=== PATIENT | female | born 1965 | race Caucasian/White ===

== ENCOUNTER 2018-02-07 18:37 | Emergency (ER) | payer OTHER ==
[~2018-02-07] VITALS: Ht 162.6 cm; Wt 126.4 kg
[~2018-02-07 18:37] MED LIST: FURO-92 PO; LISI-167 PO; Nicotine TD; ONDA4TAB7 PO; POLY17PO5 PO; POTA10TA11 PO; SPIR50TA PO; TRAM50TA2 PO
[2018-02-07 19:23] LABS: BASOPHILS % (AUTO) 0 % (0-1); EOSINOPHILS # (AUTO) 0.16 x10^3/uL (0-0.4); EOSINOPHILS % (AUTO) 2 % (1-7); LYMPHOCYTES # (AUTO) 0.98 x10^3/uL (1-3.4); LYMPHOCYTES % (AUTO) 12 % (22-44); MD NO; MEAN CORPUSCULAR HGB CONC 32.7 g/dL (32.4-35.8); MEAN CORPUSCULAR VOLUME 76.6 fL (80-100); MEAN PLATELET VOLUME 8.3 fL (7.4-10.4); MONOCYTES # (AUTO) 0.45 x10^3/uL (0.2-0.8); MONOCYTES % (AUTO) 5 % (2-9); NEUTROPHILS # (AUTO) 6.93 x10^3/uL (1.8-6.8); NEUTROPHILS % (AUTO) 81 % (42-75); PLATELET COUNT 179 x10^3/uL (130-400); RED BLOOD COUNT 6.36 x10^6/uL (3.82-5.3); RED CELL DISTRIBUTION WIDTH 17.2 % (9.6-15.2)
[2018-02-07 19:32] LABS: INTERNATIONAL NORMALIZED RATIO 1.02 (0.93-1.1); PROTHROMBIN TIME 10.6 Seconds (9.6-11.5)
[2018-02-07 19:34] LABS: ALANINE AMINOTRANSFERASE 31 U/L (12-78); ALBUMIN 3.5 g/dL (3.4-5.0); ANION GAP 6 mmol/L (5-15); CALCIUM 8.6 mg/dL (8.5-10.1); CHLORIDE 105 mmol/L (98-107); CREATININE 0.62 mg/dL (0.55-1.02)
[2018-02-07 19:38] LABS: ALKALINE PHOSPHATASE 90 U/L (45-117); BILIRUBIN,TOTAL 0.6 mg/dL (0.2-1.0); TOTAL PROTEIN 8.4 g/dL (6.4-8.2); TROPONIN I < 0.015 ng/mL (0.000-0.045)
[2018-02-07] MEDS ORDERED: IBUPROFEN 200 MG TABLET ONE (20:28)
[2018-02-07] MEDS ORDERED: IBUPROFEN 200 MG TABLET PO ONE (20:30)
[2018-02-07 20:38] VITALS: BP 147/74
== END 2018-02-07 20:48 | disposition home or self-care (01) ==
LOC: ED 19:06
DX: I27.0 Primary pulmonary hypertension (principal); J01.10 Acute frontal sinusitis, unspecified; I50.9 Heart failure, unspecified; Z90.89 Acquired absence of other organs; Z98.51 Tubal ligation status; F17.210 Nicotine dependence, cigarettes, uncomplicated
CPT/HCPCS: 36415; 71045; 80053; 83880; 84484; 85025; 85610; 85730; 93005; 99285

== ENCOUNTER 2018-02-12 18:36 | Inpatient (IN) | payer OTHER ==
[~2018-02-12] VITALS: Ht 162.6 cm; Wt 126.2 kg
[2018-02-12 19:14] LABS: BASOPHILS # (AUTO) 0.04 x10^3/uL (0-0.1); BASOPHILS % (AUTO) 0 % (0-1); EOSINOPHILS # (AUTO) 0.14 x10^3/uL (0-0.4); EOSINOPHILS % (AUTO) 1 % (1-7); LYMPHOCYTES # (AUTO) 1.48 x10^3/uL (1-3.4); LYMPHOCYTES % (AUTO) 15 % (22-44); MD NO; MEAN CORPUSCULAR HEMOGLOBIN 25.2 pg (27.0-34.8); MEAN CORPUSCULAR HGB CONC 32.8 g/dL (32.4-35.8); MEAN CORPUSCULAR VOLUME 76.6 fL (80-100); MEAN PLATELET VOLUME 8.5 fL (7.4-10.4); MONOCYTES # (AUTO) 0.57 x10^3/uL (0.2-0.8); MONOCYTES % (AUTO) 6 % (2-9); NEUTROPHILS # (AUTO) 7.98 x10^3/uL (1.8-6.8); NEUTROPHILS % (AUTO) 78 % (42-75); PLATELET COUNT 184 x10^3/uL (130-400); RED CELL DISTRIBUTION WIDTH 17.1 % (9.6-15.2)
[2018-02-12 19:19] LABS: INTERNATIONAL NORMALIZED RATIO 1.05 (0.93-1.1); PROTHROMBIN TIME 10.8 Seconds (9.6-11.5)
[2018-02-12 19:20] LABS: ALANINE AMINOTRANSFERASE 30 U/L (12-78); ALBUMIN 3.7 g/dL (3.4-5.0); ANION GAP 5 mmol/L (5-15); CHLORIDE 99 mmol/L (98-107); CREATININE 0.71 mg/dL (0.55-1.02)
[2018-02-12 19:24] LABS: ALKALINE PHOSPHATASE 86 U/L (45-117); BILIRUBIN,TOTAL 0.8 mg/dL (0.2-1.0); TOTAL PROTEIN 8.9 g/dL (6.4-8.2); TROPONIN I < 0.015 ng/mL (0.000-0.045)
[2018-02-12] MEDS ORDERED: OMNIPAQUE 350 MG/ML, 100ML BOTTLE ONE (21:20)
[2018-02-12] MEDS ORDERED: SENN1TAB8 PO (21:45)
[2018-02-12] MEDS ORDERED: ESOM40CA PO (21:46)
[2018-02-12] MEDS ORDERED: LINA5TAB PO (21:46)
[2018-02-12] MEDS ORDERED: ASPI-496 PO (21:47)
[2018-02-12] MEDS ORDERED: CEPH-368 PO (21:47)
[2018-02-12] MEDS: SODIUM CHLORIDE FLUSH 10ML SYR IVF SCH (22:30)
[2018-02-12] MEDS ORDERED: NITROGLYCERIN 0.4 MG BOTTLE (25 TABS) SL PRN (22:30)
[2018-02-12] MEDS ORDERED: morphine SULFATE 10 MG/ML, 1ML IVPush PRN (22:30)
[2018-02-12] MEDS: CEPHALEXIN 500 MG CAPSULE PO SCH (22:30)
[2018-02-12] MEDS ORDERED: ONDANSETRON ODT 4 MG PO PRN (22:30)
[2018-02-12] MEDS ORDERED: POLYETHYLENE GLYCOL 17 GM PACKET PO PRN (22:30)
[2018-02-12] MEDS ORDERED: BISACODYL 10 MG SUPP PR PRN (22:30)
[2018-02-12 22:33] VITALS: BP 120/77
[2018-02-12] MEDS: HEPARIN 5,000 UNITS/ML, 1ML SQ SCH (23:50)
[2018-02-13] MEDS: ALBUTEROL SULFATE 2.5 MG/3 ML NPPB PRN ×2 (00:42→17:23)
[2018-02-13 00:55] LABS: TROPONIN I < 0.015 ng/mL (0.000-0.045)
[2018-02-13 02:00] VITALS: BP 102/58
[2018-02-13] MEDS: ASPIRIN 81 MG TABLET EC PO SCH (05:23)
[2018-02-13 07:22] LABS: BASOPHILS # (AUTO) 0.04 x10^3/uL (0-0.1); BASOPHILS % (AUTO) 1 % (0-1); EOSINOPHILS # (AUTO) 0.16 x10^3/uL (0-0.4); EOSINOPHILS % (AUTO) 2 % (1-7); LYMPHOCYTES # (AUTO) 1.61 x10^3/uL (1-3.4); LYMPHOCYTES % (AUTO) 21 % (22-44); MD NO; MEAN CORPUSCULAR HEMOGLOBIN 24.9 pg (27.0-34.8); MEAN CORPUSCULAR HGB CONC 32.8 g/dL (32.4-35.8); MEAN PLATELET VOLUME 8.6 fL (7.4-10.4); MONOCYTES # (AUTO) 0.54 x10^3/uL (0.2-0.8); MONOCYTES % (AUTO) 7 % (2-9); NEUTROPHILS # (AUTO) 5.29 x10^3/uL (1.8-6.8); NEUTROPHILS % (AUTO) 69 % (42-75); PLATELET COUNT 161 x10^3/uL (130-400); RED BLOOD COUNT 6.08 x10^6/uL (3.82-5.3); RED CELL DISTRIBUTION WIDTH 17.1 % (9.6-15.2)
[2018-02-13 07:23] LABS: ALANINE AMINOTRANSFERASE 27 U/L (12-78); ALBUMIN 3.3 g/dL (3.4-5.0); ANION GAP 8 mmol/L (5-15); CALCIUM 8.8 mg/dL (8.5-10.1); CHLORIDE 100 mmol/L (98-107); CHOLESTEROL, TOTAL 169 mg/dL (140-239); CREATININE 0.53 mg/dL (0.55-1.02)
[2018-02-13 07:25] VITALS: BP 93/59
[2018-02-13 07:28] LABS: ALKALINE PHOSPHATASE 80 U/L (45-117); BILIRUBIN,TOTAL 1.1 mg/dL (0.2-1.0); CHOL/HDL RATIO 3.8; HDL CHOL % 27 % (28-40); HDL CHOLESTEROL (DIRECT) 45 mg/dL (40-60); LDL CHOLESTEROL,CALCULATED 103 mg/dL (54-169); LDL/HDL RATIO 2.3 (0.5-3.0); TOTAL PROTEIN 7.9 g/dL (6.4-8.2); TRIGLYCERIDES 104 mg/dL (50-200); TROPONIN I < 0.015 ng/mL (0.000-0.045); VLDL CHOLESTEROL 21 mg/dL (0-25)
[2018-02-13] MEDS: LINAGLIPTIN 5 MG TAB PO SCH (07:50)
[2018-02-13] MEDS: PANTOPROZOLE 40MG TABLET PO SCH (07:50)
[2018-02-13] MEDS: SENNA/DOCUSATE TABLET PO SCH (07:50)
[2018-02-13] MEDS: LISINOPRIL 10 MG TABLET PO SCH (07:50)
[2018-02-13] MEDS: HEPARIN 5,000 UNITS/ML, 1ML SQ SCH ×3 (07:51→23:15)
[2018-02-13] MEDS ORDERED: REGADENOSON 0.4 MG/5 ML SYRINGE ONE (08:33)
[2018-02-13] MEDS: CEPHALEXIN 500 MG CAPSULE PO SCH ×3 (09:00→21:00)
[2018-02-13] MEDS: SODIUM CHLORIDE FLUSH 10ML SYR IVF SCH ×2 (09:00→23:15)
[2018-02-13 10:30] VITALS: BP 116/77
[2018-02-13] MEDS: FERROUS SULFATE 325 MG TABLET PO SCH (10:47)
[2018-02-13 13:28] VITALS: BP 124/83
[2018-02-13] MEDS ORDERED: IBUPROFEN 200 MG TABLET PO PRN (17:00)
[2018-02-13] MEDS ORDERED: IBUPROFEN 200 MG TABLET ONE (17:00)
[2018-02-13 18:56] VITALS: BP 110/67
[2018-02-14 01:57] VITALS: BP 93/60
[2018-02-14] MEDS: ASPIRIN 81 MG TABLET EC PO SCH (06:03)
[2018-02-14 07:40] VITALS: BP 135/83
[2018-02-14] MEDS: SENNA/DOCUSATE TABLET PO SCH (08:29)
[2018-02-14] MEDS: PANTOPROZOLE 40MG TABLET PO SCH (08:29)
[2018-02-14] MEDS: FERROUS SULFATE 325 MG TABLET PO SCH (08:30)
[2018-02-14] MEDS: LISINOPRIL 10 MG TABLET PO SCH (08:30)
[2018-02-14] MEDS: LINAGLIPTIN 5 MG TAB PO SCH (08:30)
[2018-02-14] MEDS: HEPARIN 5,000 UNITS/ML, 1ML SQ SCH (08:30)
[2018-02-14] MEDS: CEPHALEXIN 500 MG CAPSULE PO SCH (08:33)
[2018-02-14] MEDS: SODIUM CHLORIDE FLUSH 10ML SYR IVF SCH (09:00)
[2018-02-14] MEDS ORDERED: SIMV40TA PO (10:51)
[2018-02-14 12:44] VITALS: BP 117/80
== END 2018-02-14 17:08 | disposition home or self-care (01) | DRG 313 ==
LOC: ED 20:05 → EDIP 21:48 → 5SO 22:26
PROVIDERS: ADMIT Internal Medicine; ATTEND Internal Medicine
DX: R07.9 Chest pain, unspecified (principal); E46 Unspecified protein-calorie malnutrition; E87.1 Hypo-osmolality and hyponatremia; I50.30 Unspecified diastolic (congestive) heart failure; J96.10 Chronic respiratory failure, unspecified whether with hypoxia or hypercapnia; I38 Endocarditis, valve unspecified; Z68.42 Body mass index [BMI] 45.0-49.9, adult; E66.01 Morbid (severe) obesity due to excess calories; B19.20 Unspecified viral hepatitis C without hepatic coma; D64.9 Anemia, unspecified; F17.210 Nicotine dependence, cigarettes, uncomplicated; I07.1 Rheumatic tricuspid insufficiency; I11.0 Hypertensive heart disease with heart failure; I27.20 Pulmonary hypertension, unspecified; Z99.81 Dependence on supplemental oxygen; Z90.49 Acquired absence of other specified parts of digestive tract; Z98.51 Tubal ligation status; Z82.49 Family history of ischemic heart disease and other diseases of the circulatory system; Z79.82 Long term (current) use of aspirin; Z79.899 Other long term (current) drug therapy; Z88.5 Allergy status to narcotic agent; Z88.1 Allergy status to other antibiotic agents
CPT/HCPCS: 36415; 99285; J7613; 71045; 71275; 78452; 80053; 80061; 82728; 83540; 83550; 83880; 84484; 85025; 85610; 85730; 93005; 93017; 93306; 94640; G0378; J1644; J2785; Q0162; Q9967; A9502; C9898

== ENCOUNTER → 2018-02-19 | Outpatient (CLI) | payer OTHER ==
[~2018-02-19] MED LIST changes: +ASPI-496 PO; +CEPH-368 PO; +ESOM40CA PO; +LINA5TAB PO; +SENN1TAB8 PO; +SIMV40TA PO
== END | disposition home or self-care (01) ==
LOC: CARD 14:19
PROVIDERS: ATTEND Internal Medicine Cardiovascular Disease
DX: R06.02 Shortness of breath (principal)
CPT/HCPCS: 94060; 94726; 94729

== ENCOUNTER → 2018-10-23 | Outpatient (CLI) | payer BC ==
[~2018-10-23] MED LIST changes: +ALBU90AE INH; +FLUT9.9S NS; +GLIP2.5T16 PO; +LORA10TA75 PO; +NAPR220C2 PO; +NICO-487 TD; +SENN-177 PO; -SENN1TAB8 PO; +SODI1TAB11 PO; +UMEC1DIS INH
[2018-10-23 11:22] LABS: ALANINE AMINOTRANSFERASE 39 U/L (12-78); ANION GAP 4 mmol/L (5-15); CALCIUM 9.6 mg/dL (8.5-10.1); CHLORIDE 102 mmol/L (98-107); CREATININE 0.75 mg/dL (0.55-1.02)
[2018-10-23 11:25] LABS: ALKALINE PHOSPHATASE 105 U/L (45-117); BILIRUBIN,TOTAL 0.5 mg/dL (0.2-1.0); TOTAL PROTEIN 8.7 g/dL (6.4-8.2)
== END | disposition home or self-care (01) ==
LOC: STAR 09:51
PROVIDERS: ATTEND Internal Medicine Gastroenterology
DX: Z01.818 Encounter for other preprocedural examination (principal); G47.30 Sleep apnea, unspecified; B18.2 Chronic viral hepatitis C; R19.5 Other fecal abnormalities
CPT/HCPCS: 36415; 80053; 93005

== ENCOUNTER → 2019-03-15 | Outpatient (CLI) | payer BC | END | disposition home or self-care (01) | LOC: CFH 14:13 | PROVIDERS: ATTEND Registered Nurse | DX: Z12.2 Encounter for screening for malignant neoplasm of respiratory organs (principal); I28.1 Aneurysm of pulmonary artery; F17.210 Nicotine dependence, cigarettes, uncomplicated; J44.9 Chronic obstructive pulmonary disease, unspecified; G47.33 Obstructive sleep apnea (adult) (pediatric); I11.0 Hypertensive heart disease with heart failure; E11.9 Type 2 diabetes mellitus without complications; J96.11 Chronic respiratory failure with hypoxia; I50.9 Heart failure, unspecified; E66.01 Morbid (severe) obesity due to excess calories; D64.9 Anemia, unspecified; F32.9 Major depressive disorder, single episode, unspecified | CPT/HCPCS: G0297 ==

== ENCOUNTER → 2019-05-06 | Outpatient (CLI) | payer BC | END | disposition home or self-care (01) | LOC: CFH 12:43 | PROVIDERS: ATTEND Internal Medicine | DX: Z12.31 Encounter for screening mammogram for malignant neoplasm of breast (principal) | CPT/HCPCS: 77067 ==

== ENCOUNTER 2019-08-19 22:59 | Emergency (ER) | payer OTHER ==
[~2019-08-19] VITALS: Ht 162.6 cm; Wt 126.1 kg
--- NOTE | 2019-08-19 23:25 | NUR ---
PA AT BEDSIDE TO ASSESS PT
[2019-08-19] MEDS ORDERED: ONDANSETRON 2MG/ML, 2ML IVPush ONE (23:30)
[2019-08-19] MEDS ORDERED: MORPHINE SULFATE 4 MG/ML, 1ML IVPush ONE (23:30)
--- NOTE | 2019-08-19 23:30 | NUR ---
THIS IS A 54Y F THAT COMES IN FOR ABD/ BACK PAIN WORSENING OVER PAST FEW DAYS. PT STS LAST BM WAS A FEW DAYS AGO. PT HAS HX OF GERD. PT CONNECTED TO MONITORING, TORY ALANIZ.
[2019-08-19 23:55] LABS: BASOPHILS # (AUTO) 0.03 x10^3/uL (0-0.1); BASOPHILS % (AUTO) 0 % (0-1); EOSINOPHILS # (AUTO) 0.13 x10^3/uL (0-0.4); EOSINOPHILS % (AUTO) 2 % (1-7); LYMPHOCYTES # (AUTO) 1.37 x10^3/uL (1-3.4); LYMPHOCYTES % (AUTO) 16 % (22-44); MD NO; MEAN CORPUSCULAR HEMOGLOBIN 26.6 pg (27.0-34.8); MEAN CORPUSCULAR HGB CONC 33.1 g/dL (32.4-35.8); MEAN CORPUSCULAR VOLUME 80.4 fL (80-100); MEAN PLATELET VOLUME 8.3 fL (7.4-10.4); MONOCYTES # (AUTO) 0.56 x10^3/uL (0.2-0.8); MONOCYTES % (AUTO) 7 % (2-9); NEUTROPHILS # (AUTO) 6.37 x10^3/uL (1.8-6.8); NEUTROPHILS % (AUTO) 75 % (42-75); PLATELET COUNT 177 x10^3/uL (130-400); RED CELL DISTRIBUTION WIDTH 16.1 % (9.6-15.2)
--- NOTE | 2019-08-19 23:57 | NUR ---
PIV STARTED PT MEDICATED PER MAR
[2019-08-20 00:02] LABS: ALANINE AMINOTRANSFERASE 41 U/L (12-78); ALBUMIN 3.6 g/dL (3.4-5.0); ANION GAP 5 mmol/L (5-15); CALCIUM 9.1 mg/dL (8.5-10.1); CHLORIDE 104 mmol/L (98-107); CREATININE 0.75 mg/dL (0.55-1.02)
[2019-08-20] MEDS ORDERED: ONDANSETRON 2MG/ML, 2ML ONE (00:02)
[2019-08-20] MEDS ORDERED: MORPHINE SULFATE 4 MG/ML, 1ML ONE (00:02)
[2019-08-20 00:04] LABS: ALKALINE PHOSPHATASE 90 U/L (45-117); BILIRUBIN,TOTAL 0.3 mg/dL (0.2-1.0)
--- NOTE | 2019-08-20 00:18 | NUR ---
CT PENDING NEG. HCG.
--- NOTE | 2019-08-20 01:27 | NUR ---
PT UP TO RESTROOM FOR URINE SAMPLE AT THIS TIME
--- NOTE | 2019-08-20 01:30 | NUR ---
URINE WALKED TO LAB, CT CALLED TO ADDRESS THE DELAY IN CT, PER ERP CT OK WITH BORDERLINE HCG.
--- NOTE | 2019-08-20 01:38 | NUR ---
PT TO CT AT THIS TIME
[2019-08-20 01:41] LABS: HCG UR SG 1.025 (1.003-1.030); MICROSCOPIC NOT IND
[2019-08-20 01:43] LABS: CULTURE INDICATED? NO
--- NOTE | 2019-08-20 01:50 | NUR ---
PT BACK FROM CT
[2019-08-20] MEDS ORDERED: OMNIPAQUE 350 MG/ML, 100ML BOTTLE ONE (01:51)
--- NOTE | 2019-08-20 02:04 | NUR ---
MD AT BEDSIDE TO ASSESS PT AND DISCUSS POC
--- NOTE | 2019-08-20 02:38 | NUR ---
PA AT BEDSIDE TO DISCUSS DC WITH PT
[2019-08-20 02:48] VITALS: BP 126/60
--- NOTE | 2019-08-20 02:48 | NUR ---
Patient/Caregiver given discharge instructions and they have confirmed that they understand the instructions. Patient ambulatory with steady gait.
== END 2019-08-20 02:49 | disposition home or self-care (01) ==
LOC: ED 23:40
DX: R10.84 Generalized abdominal pain (principal); R11.0 Nausea; R30.0 Dysuria; Z72.9 Problem related to lifestyle, unspecified; F17.210 Nicotine dependence, cigarettes, uncomplicated; K21.9 Gastro-esophageal reflux disease without esophagitis; J44.9 Chronic obstructive pulmonary disease, unspecified; I11.0 Hypertensive heart disease with heart failure; I50.9 Heart failure, unspecified; Z90.49 Acquired absence of other specified parts of digestive tract
CPT/HCPCS: 36415; 74177; 80053; 81003; 81025; 83690; 84703; 85025; 96374; 96375; 99285; 99406; J2270; J2405; Q9967

== ENCOUNTER 2019-09-03 08:19 | Inpatient (IN) | payer OTHER ==
[~2019-09-03] VITALS: Ht 162.6 cm; Wt 123.4 kg
--- NOTE | 2019-09-03 08:43 | NUR ---
DR GARCIA BS FOR EXAM. PT CURRENTLY USING HOME CONCENTRATOR: PULSE AT 3. 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 TOOK IBUPROFEN AT 0300. NO NTG OR ASA TAKEN. DENIES LIGHTHEADEDNESS/DIZZINESS, COLD SWEAT, N/V. + JACOB. LAST ORAL INTAKE: FOOD 0400, APPLE WATER THIS AM. LAST BM YESTERDAY. SPOUSE IN ROOM ASSISTING W/ HISTORY. PT CHANGED TO ED O2.
--- NOTE | 2019-09-03 08:50 | NUR ---
CXR AT BS
[2019-09-03] MEDS ORDERED: NITROGLYCERIN SINGLE TAB 0.4 MG SL PRN (09:00)
[2019-09-03] MEDS ORDERED: SODIUM CHLORIDE FLUSH 10ML SYR IVF ONE (09:00)
[2019-09-03] MEDS ORDERED: ASPIRIN 81 MG TABLET CHEW PO ONE (09:00)
[2019-09-03] MEDS ORDERED: NITROGLYCERIN SINGLE TAB 0.4 MG SL ONE (09:04)
[2019-09-03] MEDS ORDERED: ASPIRIN 81 MG TABLET CHEW ONE (09:04)
[2019-09-03 09:06] LABS: BASOPHILS # (AUTO) 0.04 x10^3/uL (0-0.1); BASOPHILS % (AUTO) 0 % (0-1); EOSINOPHILS # (AUTO) 0.17 x10^3/uL (0-0.4); EOSINOPHILS % (AUTO) 2 % (1-7); LYMPHOCYTES # (AUTO) 1.07 x10^3/uL (1-3.4); LYMPHOCYTES % (AUTO) 10 % (22-44); MD NO; MEAN CORPUSCULAR HEMOGLOBIN 26.8 pg (27.0-34.8); MEAN CORPUSCULAR VOLUME 81.2 fL (80-100); MEAN PLATELET VOLUME 7.9 fL (7.4-10.4); MONOCYTES # (AUTO) 0.61 x10^3/uL (0.2-0.8); MONOCYTES % (AUTO) 6 % (2-9); NEUTROPHILS # (AUTO) 8.58 x10^3/uL (1.8-6.8); NEUTROPHILS % (AUTO) 82 % (42-75); PLATELET COUNT 175 x10^3/uL (130-400); RED BLOOD COUNT 5.31 x10^6/uL (3.82-5.3); RED CELL DISTRIBUTION WIDTH 16.1 % (9.6-15.2)
--- NOTE | 2019-09-03 09:07 | NUR ---
ASA GIVEN. EKG AT BS
[2019-09-03 09:12] LABS: ALBUMIN 3.8 g/dL (3.4-5.0); ANION GAP 7 mmol/L (5-15); CALCIUM 9.7 mg/dL (8.5-10.1); CHLORIDE 103 mmol/L (98-107)
--- NOTE | 2019-09-03 09:16 | NUR ---
PIV INITIATED. ASA AND NTG GIVEN PER EMAR.
[2019-09-03 09:17] LABS: TROPONIN I < 0.015 ng/mL (0.000-0.045)
[2019-09-03] MEDS ORDERED: OMEP40CA42 PO (09:22)
[2019-09-03] MEDS ORDERED: SODIUM CHLORIDE FLUSH 10ML SYR IVF PRN (10:00)
--- NOTE | 2019-09-03 10:05 | NUR ---
PT NOW IN ED ROOM 4. RESTING QUIETLY ON BED, MONITORING CONTINUING, WATCHING TV, SPOUSE AT BEDSIDE, CALL LIGHT W/IN REACH. PT REPORTS JACOB PAIN 4/10, CP 6/10 THAT WORSENS W/ MOVEMENT. REPORTS HAVING GAS AND BURPING. WILL CONSULT DR GARCIA.
[2019-09-03] MEDS ORDERED: MAALOX/HYOSCYAMINE/LIDOCAINE 45 ML BTL ONE (10:15)
--- NOTE | 2019-09-03 10:21 | NUR ---
GI COCKTAIL GIVEN
[2019-09-03] MEDS ORDERED: MAALOX/HYOSCYAMINE/LIDOCAINE 45 ML BTL PO ONE (10:30)
--- NOTE | 2019-09-03 11:05 | NUR ---
PT AMBULATORY TO & FROM BONE BR W/OUT INCIDENT; GAIT SLOW & STEADY; USING OWN OXYGEN CONCENTRATOR. VOIDED SPECIMEN PROVIDED. REPORTS NO IMPROVMENT IN CP POST-GI COCKTAIL.
--- NOTE | 2019-09-03 11:25 | NUR ---
PT REPORT CALLED TO SYLWIA LANG FOR ROOM [id number]
[2019-09-03] MEDS ORDERED: NITROGLYCERIN 0.4 MG BOTTLE (25 TABS) SL PRN (12:00)
[2019-09-03] MEDS ORDERED: NITROGLYCERIN 0.4 MG/SPRAY SL PRN (12:00)
[2019-09-03 12:06] VITALS: BP 137/85
[2019-09-03] MEDS: NICOTINE 14MG/24 HR PATCH.TD24 TD SCH (12:20)
[2019-09-03] MEDS ORDERED: OMNIPAQUE 350 MG/ML, 100ML BOTTLE ONE (12:54)
[2019-09-03 15:03] LABS: TROPONIN I < 0.015 ng/mL (0.000-0.045)
[2019-09-03] MEDS ORDERED: ALBUTEROL SULFATE 2.5 MG/3 ML ONE (15:19)
[2019-09-03] MEDS ORDERED: ALBUTEROL SULFATE 2.5 MG/3 ML NPPB PRN (15:30)
[2019-09-03] MEDS: ACETAMINOPHEN 325 MG TABLET PO PRN (16:56)
[2019-09-03] MEDS: INSULIN LISPRO 100 UNITS/ML, PEN SQ-INSULIN SCH ×2 (16:57→19:58)
[2019-09-03 19:41] VITALS: BP 103/65
[2019-09-03 21:30] LABS: TROPONIN I < 0.015 ng/mL (0.000-0.045)
[2019-09-04 00:57] VITALS: BP 141/82
[2019-09-04 05:53] LABS: BASOPHILS # (AUTO) 0.04 x10^3/uL (0-0.1); BASOPHILS % (AUTO) 1 % (0-1); EOSINOPHILS # (AUTO) 0.11 x10^3/uL (0-0.4); EOSINOPHILS % (AUTO) 1 % (1-7); LYMPHOCYTES # (AUTO) 1.61 x10^3/uL (1-3.4); LYMPHOCYTES % (AUTO) 20 % (22-44); MD NO; MEAN CORPUSCULAR HEMOGLOBIN 27.1 pg (27.0-34.8); MEAN CORPUSCULAR HGB CONC 33.3 g/dL (32.4-35.8); MEAN CORPUSCULAR VOLUME 81.5 fL (80-100); MEAN PLATELET VOLUME 8.4 fL (7.4-10.4); MONOCYTES # (AUTO) 0.66 x10^3/uL (0.2-0.8); MONOCYTES % (AUTO) 8 % (2-9); NEUTROPHILS # (AUTO) 5.57 x10^3/uL (1.8-6.8); NEUTROPHILS % (AUTO) 70 % (42-75); PLATELET COUNT 159 x10^3/uL (130-400); RED CELL DISTRIBUTION WIDTH 15.8 % (9.6-15.2)
[2019-09-04 06:00] LABS: MICROSCOPIC NOT IND
[2019-09-04 06:00] LABS: ANION GAP 4 mmol/L (5-15); CALCIUM 9.1 mg/dL (8.5-10.1); CHLORIDE 104 mmol/L (98-107); CREATININE 0.54 mg/dL (0.55-1.02)
[2019-09-04 06:07] LABS: CULTURE INDICATED? NO
[2019-09-04] MEDS: INSULIN LISPRO 100 UNITS/ML, PEN SQ-INSULIN SCH ×4 (07:00→20:43)
[2019-09-04 08:10] VITALS: BP 129/74
[2019-09-04] MEDS: LISINOPRIL 10 MG TABLET PO SCH (08:32)
[2019-09-04] MEDS: OMEPRAZOLE 20 MG CAPSULE.DR PO SCH (08:32)
[2019-09-04] MEDS: SENNA/DOCUSATE TABLET PO SCH (08:32)
[2019-09-04] MEDS: LORATADINE 10 MG TABLET PO SCH (08:32)
[2019-09-04] MEDS ORDERED: REGADENOSON 0.4 MG/5 ML SYRINGE ONE (09:24)
[2019-09-04] MEDS: NICOTINE 14MG/24 HR PATCH.TD24 TD SCH (12:02)
[2019-09-04 13:39] VITALS: BP 120/77
[2019-09-04 20:28] VITALS: BP 123/82
[2019-09-05] MEDS: ACETAMINOPHEN 325 MG TABLET PO PRN (00:01)
[2019-09-05 00:04] VITALS: BP 152/91
[2019-09-05 05:53] LABS: BASOPHILS # (AUTO) 0.02 x10^3/uL (0-0.1); BASOPHILS % (AUTO) 0 % (0-1); EOSINOPHILS # (AUTO) 0.28 x10^3/uL (0-0.4); EOSINOPHILS % (AUTO) 4 % (1-7); LYMPHOCYTES # (AUTO) 1.55 x10^3/uL (1-3.4); LYMPHOCYTES % (AUTO) 20 % (22-44); MD NO; MEAN CORPUSCULAR HEMOGLOBIN 26.3 pg (27.0-34.8); MEAN CORPUSCULAR HGB CONC 32.5 g/dL (32.4-35.8); MEAN CORPUSCULAR VOLUME 81.1 fL (80-100); MEAN PLATELET VOLUME 8.5 fL (7.4-10.4); MONOCYTES # (AUTO) 0.65 x10^3/uL (0.2-0.8); MONOCYTES % (AUTO) 8 % (2-9); NEUTROPHILS # (AUTO) 5.39 x10^3/uL (1.8-6.8); NEUTROPHILS % (AUTO) 68 % (42-75); PLATELET COUNT 163 x10^3/uL (130-400); RED BLOOD COUNT 5.19 x10^6/uL (3.82-5.3); RED CELL DISTRIBUTION WIDTH 15.9 % (9.6-15.2)
[2019-09-05 06:04] LABS: CHLORIDE 102 mmol/L (98-107)
[2019-09-05 06:13] LABS: ANION GAP 7 mmol/L (5-15); CALCIUM 9.5 mg/dL (8.5-10.1); CREATININE 0.57 mg/dL (0.55-1.02)
[2019-09-05 06:54] VITALS: BP 121/85
[2019-09-05] MEDS: INSULIN LISPRO 100 UNITS/ML, PEN SQ-INSULIN SCH ×2 (07:00→11:00)
[2019-09-05] MEDS: LORATADINE 10 MG TABLET PO SCH (08:44)
[2019-09-05] MEDS: SENNA/DOCUSATE TABLET PO SCH (08:44)
[2019-09-05] MEDS: OMEPRAZOLE 20 MG CAPSULE.DR PO SCH (08:44)
[2019-09-05] MEDS: LISINOPRIL 10 MG TABLET PO SCH (08:44)
[2019-09-05] MEDS: NICOTINE 14MG/24 HR PATCH.TD24 TD SCH (12:27)
[2019-09-05] MEDS ORDERED: GLIP2.5T16 PO (13:41)
[2019-09-05] MEDS ORDERED: LISI-167 PO (13:41)
== END 2019-09-05 14:56 | disposition home or self-care (01) | DRG 313 ==
LOC: ED 09:54 → EDIP 10:49 → 5SO 12:03
PROVIDERS: ADMIT Internal Medicine; ATTEND Hospitalist
DX: R07.9 Chest pain, unspecified (principal); I50.32 Chronic diastolic (congestive) heart failure; J96.10 Chronic respiratory failure, unspecified whether with hypoxia or hypercapnia; I25.10 Atherosclerotic heart disease of native coronary artery without angina pectoris; J44.9 Chronic obstructive pulmonary disease, unspecified; I11.0 Hypertensive heart disease with heart failure; E11.9 Type 2 diabetes mellitus without complications; F17.210 Nicotine dependence, cigarettes, uncomplicated; I27.20 Pulmonary hypertension, unspecified; D64.9 Anemia, unspecified; M06.9 Rheumatoid arthritis, unspecified; M19.90 Unspecified osteoarthritis, unspecified site; E66.01 Morbid (severe) obesity due to excess calories; Z88.1 Allergy status to other antibiotic agents; Z88.5 Allergy status to narcotic agent; Z88.8 Allergy status to other drugs, medicaments and biological substances; Z79.899 Other long term (current) drug therapy; Z79.84 Long term (current) use of oral hypoglycemic drugs
CPT/HCPCS: 36415; J7613; 71045; 71275; 78452; 80048; 81003; 82040; 82962; 83036; 83880; 84443; 84484; 85025; 85379; 93005; 93017; 93306; 94640; 99285; G0378; J2785; Q9967; A9502; J1815

== ENCOUNTER → 2020-01-06 | Outpatient (CLI) | payer BC ==
[~2020-01-06] MED LIST changes: +OMEP40CA42 PO
== END | disposition home or self-care (01) ==
LOC: CVU 14:14
PROVIDERS: ATTEND Internal Medicine Cardiovascular Disease
DX: I08.8 Other rheumatic multiple valve diseases (principal); I11.9 Hypertensive heart disease without heart failure; R06.02 Shortness of breath
CPT/HCPCS: 93306

== ENCOUNTER 2020-08-06 14:45 | Emergency (ER) | payer BC ==
[~2020-08-06] VITALS: Ht 162.6 cm; Wt 118.8 kg
[~2020-08-06 14:45] MED LIST changes: -NICO-487 TD; +NICO-587 TD
--- NOTE | 2020-08-06 15:29 | NUR ---
car salesman: pt from lobby to room [id number]
[2020-08-06] MEDS ORDERED: ASPIRIN 81 MG TABLET CHEW PO ONE (15:30)
[2020-08-06 15:38] LABS: BASOPHILS % (AUTO) 1 % (0-1); EOSINOPHILS % (AUTO) 2 % (1-7); LYMPHOCYTES % (AUTO) 18 % (22-44); MD NO; MEAN CORPUSCULAR HEMOGLOBIN 24.5 pg (27.0-34.8); MEAN CORPUSCULAR HGB CONC 32.7 g/dL (32.4-35.8); MEAN PLATELET VOLUME 7.9 fL (7.4-10.4); MONOCYTES % (AUTO) 6 % (2-9); NEUTROPHILS % (AUTO) 73 % (42-75); PLATELET COUNT 177 x10^3/uL (130-400); RED BLOOD COUNT 5.36 x10^6/uL (3.82-5.3); RED CELL DISTRIBUTION WIDTH 16.9 % (9.6-15.2)
[2020-08-06] MEDS ORDERED: ASPIRIN 81 MG TABLET CHEW ONE (15:46)
[2020-08-06 15:50] LABS: ALANINE AMINOTRANSFERASE 34 U/L (12-78); ALBUMIN 3.8 g/dL (3.4-5.0); ANION GAP 7 mmol/L (5-15); CALCIUM 8.9 mg/dL (8.5-10.1); CHLORIDE 103 mmol/L (98-107); CREATININE 0.58 mg/dL (0.55-1.02)
[2020-08-06 15:54] VITALS: BP 145/77
[2020-08-06 15:54] LABS: ALKALINE PHOSPHATASE 94 U/L (45-117); BILIRUBIN,TOTAL 0.5 mg/dL (0.2-1.0); TOTAL PROTEIN 8.3 g/dL (6.4-8.2); TROPONIN I < 0.015 ng/mL (0.000-0.045)
== END 2020-08-06 16:41 | disposition home or self-care (01) ==
LOC: ED 16:29
DX: H66.002 Acute suppurative otitis media without spontaneous rupture of ear drum, left ear (principal); I11.0 Hypertensive heart disease with heart failure; I50.9 Heart failure, unspecified; E11.9 Type 2 diabetes mellitus without complications; K21.9 Gastro-esophageal reflux disease without esophagitis; J44.9 Chronic obstructive pulmonary disease, unspecified; Z86.19 Personal history of other infectious and parasitic diseases
CPT/HCPCS: 36415; 71045; 80053; 83880; 84484; 85025; 93005; 99285

== ENCOUNTER → 2020-09-15 | Outpatient (CLI) | payer BC | END | disposition home or self-care (01) | LOC: CFH 13:10 | PROVIDERS: ATTEND Registered Nurse | DX: Z12.31 Encounter for screening mammogram for malignant neoplasm of breast (principal); Z12.2 Encounter for screening for malignant neoplasm of respiratory organs; F17.210 Nicotine dependence, cigarettes, uncomplicated; R91.1 Solitary pulmonary nodule | CPT/HCPCS: 71271; 77067 ==